=== PATIENT | male | born 1995 ===

== ENCOUNTER 2017-04-03 19:40 | Observation (INO) | payer OTHER ==
[2017-04-03] MEDS ORDERED: ONDANSETRON DISINTEGRATING 4 MG TAB ONE (19:50)
[2017-04-03] MEDS ORDERED: ONDANSETRON DISINTEGRATING 4 MG TAB PO ONE (19:51)
--- NOTE | 2017-04-03 20:49 | EDPHY ---
H & P Time Seen by Provider: 04/03/17 19:59 HPI/ROS: CHIEF COMPLAINT: Fall, head injury HISTORY OF PRESENT ILLNESS: 21-year-old male presents to the emergency department with his sister and roommate after he fell off his skateboard. The patient states that he remembers falling and the next thing he knew there was somebody helping him getting up and walking around. He does not think that he lost consciousness however. He complains of diffuse headache. He feels nauseous although no vomiting. No visual changes. He feels that his neck is stiff. He denies back pain. Denies chest pain or difficulty breathing. Denies abdominal pain. Denies paresthesias in his upper lower extremities. No previous history of concussions. The incident happened just prior to arrival. REVIEW OF SYSTEMS: Constitutional: No fever, no chills. Eyes: No double or blurry vision. ENT: No sore throat. Respiratory: No cough, no shortness of breath. Cardiac: No chest pain. Gastrointestinal: No abdominal pain, vomiting or diarrhea. Genitourinary: No dysuria. Musculoskeletal: No neck or back pain. Skin: No rashes. Neurological: headache. Past Medical/Surgical History: Negative Social History: [employer] student Smoking Status: Never smoked Physical Exam: General Appearance: Alert, no distress. Abrasions noted to the left zygomatic arch and left yarsanism. Also abrasions noted to the left posterior parietal aspect of the scalp. Sister and roommate at bedside. Eyes: Pupils equal and round. Extraocular motions are all intact. ENT: Mouth: Mucous membranes moist. No dental injury or malocclusion. No hemotympanum. Respiratory: No wheezing, rhonchi, or rales, lungs are clear to auscultation. Cardiovascular: Regular rate and rhythm. Gastrointestinal: Abdomen is soft and nontender, no masses, no rebound or guarding, bowel sounds normal. Neurological: Alert and oriented x 3, cranial nerves II through XII grossly intact Skin: Warm and dry, no rashes. Musculoskeletal: Nontender to palpate along the cervical, thoracic or lumbar spine. Neck is supple. Extremities: Full range of motion and no peripheral edema. Psychiatric: Patient is oriented X 3, there is no agitation. Constitutional: Initial Vital Signs Temperature (C) 37.4 C 04/03/17 19:46 Heart Rate 91 04/03/17 19:46 Respiratory Rate 18 04/03/17 19:46 Blood Pressure 126/81 H 04/03/17 19:46 O2 Sat (%) 97 04/03/17 19:46 O2 Delivery Mode Room Air Allergies/Adverse Reactions: No Known Allergies Allergy (Unverified 04/03/17 19:46) Home Medications: Medication Instructions Recorded NK [No Known Home Meds] 04/03/17 Medical Decision Making - Diagnostics Imaging Results: Imaging Impressions Cervical Spine CT 04/03/17 20:47 Impression: No acute posttraumatic abnormality identified. If there is persistent pain or neurologic deficit, consider MRI and/or flexion and extension views, if clinically indicated. Findings discussed with Deepti Chapa PA-C, on April 03, [address] 04/03/17 20:47 Impression: 1. Diffuse right subarachnoid hemorrhage. 2. Hypodensity in the anterior right temporal lobe suggesting contusion/edema. 3. Equivocal additional hemorrhages, as above. Findings discussed with Deepti Chapa PA-C, on April 03, 2017 at 2112. Imaging: Discussed imaging studies w/ call center receptionist Radiologist, I viewed and interpreted images myself ED Course/Re-evaluation: 21-year-old male presents to the emergency department after closed head injury. The patient is acting confused. He has multiple areas of trauma to his head. I recommended CT imaging of his brain. I discussed this with the patient as well as a sister at bedside and his parents were on the phone. CT imaging of the brain reveals subarachnoid hemorrhage in right parietal, right temporal and sylvian fissure. There is also possible extra-axial hemorrhage small, 2 mm, and left temporal occipital lobe. CT imaging of cervical spine was negative. The patient was informed of findings on CT scan. I discussed the case with Dr. Elli Dean since this was an isolated head injury. Dr. Elli Dean will admit the patient to the step-down unit. Laboratory studies have been ordered and are pending. Differential Diagnosis: Head injury including but not limited to concussion, skull fracture, intraparenchymal contusion, subarachnoid, subdural and epidural hematoma. - Data Points Laboratory Results: 04/03/17 21:00 PT 14.6 SEC SEC (12.0-15.0) INR 1.15 (0.83-1.16) APTT 26.3 SEC SEC (23.0-38.0) Medications Given: Discontinued Medications Ondansetron HCl (Zofran Odt) 4 mg PO EDNOW ONE Stop: 04/03/17 19:52 Last Admin: 04/03/17 19:53 Dose: 4 mg Departure - Departure Disposition: [facility] Inpatient Acute Clinical Impression: Subarachnoid hemorrhage following injury Qualifiers: Encounter type: initial encounter Loss of consciousness presence/duration: without LOC Qualified Code(s): S06.6X0A - Traumatic subarachnoid hemorrhage without loss of consciousness, initial encounter Condition: Fair
[2017-04-03 21:29] LABS: % IMMATURE GRANULYOCYTES 0.4 % (0.0-1.1); ABSOLUTE IMMATURE GRANULOCYTES 0.06 10^3/uL (0.00-0.10); ADD DIFF? NO; ADD MORPH? NO; ADD SCAN? NO; ATYPICAL LYMPHOCYTE FLAG 0 (0-99); FRAGMENT RBC FLAG 0 (0-99); HEMATOCRIT 47.2 % (40.0-51.0); HEMOGLOBIN 16.6 g/dL (13.7-17.5); LEFT SHIFT FLG 10 (0-99); LIPEMIA HEMOLYSIS FLAG 90 (0-99); MEAN CELL HEMOGLOBIN CONCENTR. 35.2 g/dL (32.4-36.7); MEAN CELL VOLUME 88.1 fL (81.5-99.8); MEAN PLATELET VOLUME 10.9 fL (8.7-11.7); PLATELET CLUMPS FLAG 0 (0-99); PLATELET COUNT 189 10^3/uL (150-400); RED BLOOD CELL COUNT 5.36 10^6/uL (4.40-6.38)
[2017-04-03 21:41] LABS: INR 1.15 (0.83-1.16); PROTIME(PATIENT) 14.6 SEC (12.0-15.0)
[2017-04-03 21:42] LABS: APTT 26.3 SEC (23.0-38.0)
[2017-04-03 21:58] LABS: ANION GAP 15 mEq/L (8-16); CALCIUM 9.9 mg/dL (8.5-10.4); CARBON DIOXIDE 25 mEq/l (22-31); CHLORIDE 100 mEq/L (97-110); GLOMERULAR FILTRATION RATE > 60; GLUCOSE 109 mg/dL (70-100); POTASSIUM 3.4 mEq/L (3.5-5.2); SODIUM 140 mEq/L (134-144)
[2017-04-03] MEDS ORDERED: ACETAMINOPHEN 325 MG TAB PO PRN (22:43)
[2017-04-03] MEDS ORDERED: ONDANSETRON 4 MG/2 ML VIAL IVP PRN (22:48)
[2017-04-03] MEDS: HYDROCODONE/APAP 5/325 TAB PO PRN (23:04)
--- NOTE | 2017-04-04 00:39 | GHP ---
[f rep st] HISTORY AND PHYSICAL DATE OF ADMISSION: 04/03/2017 CHIEF COMPLAINT: Closed head injury. HISTORY OF PRESENT ILLNESS: A 21-year-old male who was on a new skateboard, which must have gotten o ut from underneath him. He fell and struck his head. He is amnestic to the event. He thinks he los t consciousness. He complains of a headache. Some mild nausea. No vomiting. He complains of some facial numbness. No other tingling or weakness. No loss of control of bowel or bladder. PAST MEDICAL HISTORY: Negative. PAST SURGICAL HISTORY: Negative. SOCIAL HISTORY: He does not drink alcohol. He does not use illicit drugs. He does not smoke. FAMILY HISTORY: He has no family history of any contributory disorders, blood dyscrasias, or other f actors. ALLERGIES: He has no known drug allergies. MEDICATIONS: Include biotin. REVIEW OF SYSTEMS: Complete 10 system review of systems performed by myself was negative except as s tated above. PHYSICAL EXAMINATION: VITAL SIGNS: Blood pressure is 122/74, heart rate is 56, respiratory rate is 12, saturating 94% on room air. Temperature is 37 degrees Celsius. LABORATORY: White blood cell count 14.47, hemoglobin 16.6, hematocrit 47.2, platelets are 189. PT i s 14.6. INR 1.15. PTT 26.3. Sodium 140, potassium 3.4, chloride 100, CO2 of 25, BUN 15, creatinine 1.02. CT of the head dated 04/03/2017 at 2047 reveals a small left parietal scalp hematoma. There is subar achnoid hemorrhage in the sylvian fissure extending over the right temporal and parietal lobes. Low attenuation anterior right temporal lobe could be related to contusion. Punctate high attenuation in the left temporal occipital regions, series 4, image #47, in the right frontal lobe could be related to artifact or hemorrhage, more likely artifact in my opinion. There is no midline shift. High att enuation in the left temporal occipital regions. Transverse sinus could represent unusual appearance of the sinus or a small extra-axial hemorrhage. Ventricles and sulci are normal. No fracture is id entified. Paranasal sinuses and mastoid air cells are clear. CT of the cervical spine reveals no ac [place] posttraumatic abnormality. NEUROLOGIC EXAMINATION: He is alert and oriented x3. Pupils are equal, round, reactive to light and accommodation. External ocular muscles are intact. There is no facial asymmetry or tongue deviatio n. Sensation is intact, V1, V2, V3 distributions, 5th cranial nerve bilaterally. Strength is 5/5 to bilateral deltoids, biceps, triceps, wrist flexors, wrist extensors, hand intrinsics, iliopsoas, kate driceps, hamstrings, dorsiflexors, plantar flexors, EHLs. DTRs are +2/4 biceps, brachioradialis, pat colin, and Achilles. There is no Phipps's, there is no clonus, and there is no drift. IMPRESSION AND PLAN: This is a 21-year-old male with a closed head injury with traumatic subarachnoi d hemorrhage, possibly some contusion versus artifact. I think it is more likely artifact. He is ne urologically intact with mild headache. We will watch him overnight in observation with q.2 hours ne uro checks. No Keppra is indicated at this point in time, nor is a repeat head CT in this young pers on indicated unless he clinically declines. Will have speech see him in the morning for a cognitive evaluation, and likely discharge him. Please call with any changes in neurologic status. /[id number]/MODL
[2017-04-04] MEDS: HYDROCODONE/APAP 5/325 TAB PO PRN (03:54)
--- NOTE | 2017-04-04 06:55 | NEUSURGPN ---
Assessment/Plan: 21 y/o male s/p skateboarding accident with tSAH -Neuro stable this morning -Pain under good control with Transfer -PT/OT/OPEN W[facility]ER evals this am -If cleared by therapies okay to d/c home -Discussed red flag symptoms with patient and family this am -Follow up with Dr. Dean in 2-3 weeks -If he develops any new or worsening symptoms he is encouraged to give our office a call. Subjective: Mild headache. Tolerable with medications. Objective: NAD A&Ox3 MAEx4 5/5 and equal in BUE and BLE. CN II-XII grossly intact. EOMI - Physician Discussed Patient with : [facility] Physical Exam - Vitals, I&O, Labs I and O 04/03/17 04/04/17 04/05/17 05:59 05:59 05:59 Intake Total 250 Balance 250 Weight 64.8 kg Intake: Oral (ml) 250 Other: Number of Voids Toilet 2 Vital Signs Temp Pulse Resp BP Pulse Ox 36.8 C 65 14 127/62 H 96 04/04/17 00:00 04/04/17 05:21 04/04/17 05:21 04/04/17 05:21 04/04/17 05:21 Laboratory Results 04/03/17 21:20 04/03/17 21:20 ICD10 Worksheet Patient Problems: Problems Problem Status Onset Subarachnoid hemorrhage following injury Acute
[2017-04-04 07:56] VITALS: BP 103/71; PULSE 74; RESP 17; TEMP 97.7; O2SAT 98
[2017-04-04] MEDS ORDERED: BACITRACIN OINTMENT 1 PACKET TP ONE (08:31)
[2017-04-04] MEDS ORDERED: FLU VACC QS 2017-18 (3YR+)/PF 0.5 ML SYR (FLUARIX QUAD) IM ONE (08:48)
--- NOTE | 2017-04-04 11:56 | ASMTCASEMG ---
Living Arrangements What is your living Answers: WIth Both Parents/1 Home arrangement? Who do you live with? Type Of Residence What kind of residence do Answers: House you live in? Case Management Evaluation Functional: Able to Answers: No return Home with Prior Level of Function/Care Discharge Plan Comments Coordination Status Comments Notes: Prakash will discharge home with family. Date Signed: 04/04/2017 11:56 AM Electronically Signed By:JULES Pandya
--- NOTE | 2017-04-04 11:59 | ASDISCHSUM ---
Discharge Information Plan Status:Home with No Needs Medically Cleared to Leave:04/04/2017 Discharge Date:04/04/2017 CM D/C Disposition:Home, Routine, Self-Care ADT D/C Disposition:Home, Routine, Self-Care Projected Discharge Date:04/04/2017 01:00 PM Transportation at D/C:Family Discharge Delay Reason: Follow-Up Date:04/04/2017 01:00 PM Discharge Slot: Final Diagnosis:Subarachnoid hemorrhage from trauma Placement Information Patient Contact Information Contact Name:GAYATRI Relationship:Mother Address: Work Phone: City: [facility] Phone: State/[employer] Code: Email: Financial Information Financial Class:HMO and PPO Plans Primary Plan Desc: [employer] Primary Plan Number:[id number] Secondary Plan Desc: Secondary Plan Number: Assessment Information [facility] Initial CM Assessment Living Arrangements What is your living Answers: WIth Both Parents/1 Home arrangement? Who do you live with? Type Of Residence What kind of residence do Answers: House you live in? Case Management Evaluation Functional: Able to Answers: No return Home with Prior Level of Function/Care Discharge Plan Comments Coordination Status Comments Notes: Prakash will discharge home with family. Date Signed: 04/04/2017 11:56 AM Electronically Signed By:JULES Pandya [facility] CM Progress Note CM Note CM Note Notes: Patient is discharging home with family with no additional Case management needs apparent at this time. Date Signed: 04/04/2017 11:58 AM Electronically Signed By:JULES Pandya Intervention Information
== END 2017-04-04 12:55 | disposition home or self-care (01) ==
LOC: INTOOBSV 21:19 → OBSVTOIN 21:19 → F2N 22:03
PROVIDERS: ADMIT Neurological Surgery; ATTEND Neurological Surgery
DX: S06.6X9A Traumatic subarachnoid hemorrhage with loss of consciousness of unspecified duration, initial encounter (principal); V00.131A Fall from skateboard, initial encounter; Y93.51 Activity, roller skating (inline) and skateboarding; Z23 Encounter for immunization
CPT/HCPCS: 70450; 72125; 90471; 92523; 97161; 97165; G0378; G0008; J2405